=== PATIENT | male | born 1985 | race African-American/Black ===

== ENCOUNTER 2016-09-26 14:19 | Emergency (ER) | payer OTHER ==
[~2016-09-26] VITALS: Ht 182.9 cm; Wt 105.2 kg
[2016-09-26] MEDS ORDERED: NO MEDICATIONS (14:24)
== END 2016-09-26 15:38 | disposition home or self-care (01) ==
LOC: SED 14:19
DX: S61.012A Laceration without foreign body of left thumb without damage to nail, initial encounter (principal); Z23 Encounter for immunization; F17.210 Nicotine dependence, cigarettes, uncomplicated; W29.8XXA Contact with other powered hand tools and household machinery, initial encounter; Y92.9 Unspecified place or not applicable
CPT/HCPCS: 12001; 90471; 90715; 99283

== ENCOUNTER 2016-10-09 23:18 | Emergency (ER) | payer SELFPAY ==
[~2016-10-09] VITALS: Ht 182.9 cm; Wt 104.3 kg
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
[~2016-10-09 23:18] MED LIST: NO MEDICATIONS
== END 2016-10-10 02:49 | disposition home or self-care (01) ==
LOC: SED 23:18
DX: S06.0X9A Concussion with loss of consciousness of unspecified duration, initial encounter (principal); S20.219A Contusion of unspecified front wall of thorax, initial encounter; W22.8XXA Striking against or struck by other objects, initial encounter
CPT/HCPCS: 70450; 71020; 99284